=== PATIENT | female | born 1990 | race Caucasian/White ===

== ENCOUNTER 2018-03-03 02:45 | Emergency (ER) | payer BC, SELFPAY ==
[2018-03-03 02:48] VITALS: BP 179/120; PULSE 84; RESP 19; TEMP 36.4; O2SAT 100; BMI 31.6
--- NOTE | 2018-03-03 03:03 | ED.RN ---
NO OLD EKGS
--- NOTE | 2018-03-03 03:11 | EKG12_ITS ---
Test Reason : CP Blood Pressure : / mmHG Vent. Rate : 083 BPM Atrial Rate : 083 BPM P-R Int : 154 ms QRS Dur : 090 ms QT Int : 384 ms P-R-T Axes : 038 031 042 degrees QTc Int : 451 ms Normal sinus rhythm Normal ECG Confirmed by MORENA MCDANIEL, CARLO ([id number]), editor department CHRISTIANA RANDOLPH ([id number]) on 03/05/2018 9:01:58 AM Referred By: MADIE Confirmed By:CARLO BERG MD
--- NOTE | 2018-03-03 03:11 | CT_ITS ---
STUDY: CTA CHEST REASON FOR EXAM: Female, 27 years old. Chest pain RADIATION DOSAGE (If Supplied By Facility): CTDIvol = ( 9.78 ) mGy, DLP = ( 527.41 ) mGycm TECHNIQUE: The examination was performed with the intravenous administration of 100 ml of Isovue 370 contrast material. Post-processing of the angiographic images was performed, with multiplanar reformation and 3D reconstruction. There is image blurring as a result of cardiac motion. Diagnostic accuracy is somewhat reduced. However, there is substantial diagnostic information remaining available on this study. Individualized dose optimization techniques were used for this CT. COMPARISON: None. FINDINGS: Normal enhancement of the main pulmonary artery and right and left pulmonary arteries. Normal enhancement of the bilateral peripheral pulmonary arteries. There is no demonstrated pulmonary embolism. Normal thoracic aorta and visualized great vessels. There is no demonstrated aortic dissection. Normal heart and pericardium. Normal mediastinum. Normal hilar regions. Normal visualized trachea and bronchi. The lungs are under expanded. Normal pulmonary parenchyma. Normal pleura. Normal chest wall structures. Normal osseous structures. Obesity. CT/CTA Chest W/WO Contrast IMPRESSION: Normal CTA chest examination, without a demonstrated pulmonary embolism or arterial dissection on submitted images. Electronically Signed: Monalisa Adamson MD at 4:18 EST , Service support ,
[2018-03-03 03:25] LABS: Absolute Lymphocyte Count 2.38 X10^3/ul (0.83-4.51); Absolute Neutrophil Count 4.7 X10^3/uL (2.0-7.7); Basophil# 0.01 X10^3/uL; Basophil% 0.1 % (0-1); Eosinophil# 0.15 X10^3/uL; Eosinophils% 1.9 % (0-5); Hematocrit 38.7 % (37-47); Hemoglobin 12.5 g/dl (12.0-15.0); Lymphocyte # 2.38 X10^3/ul (4.0); Lymphocyte % 30.6 % (19-41); Mean Corp Hgb Conc 32.3 g/gl (32-36); Mean Corpuscular Hgb 28.2 pg (27.0-32.0); Mean Corpuscular Volume 87.2 fL (81-99); Mean Platelet Vol. 11.7 fl (6.2-12.0); Monocyte# 0.54 X10^3/uL; Monocyte% 6.9 % (0-10); Neutrophil # 4.68 X10^3/uL (2.7-7.7); Neutrophil % 60.4 % (47-70); Platelet Count 156 K/mm3 (150-450); RBC Distribution Width SD 40.6 fl (35.1-43.9); Red Blood Count 4.44 M/mm3 (4.2-5.4); White Blood Count 7.8 K/mm3 (4.4-11.0)
[2018-03-03 03:31] LABS: POSITIVE COUNT NO; POSITIVE DIFFERENTIAL NO; POSITIVE MORPHOLOGY NO
[2018-03-03 03:42] LABS: Anion Gap 11 (5-15); BUN 12 mg/dL (7-18); BUN/Creat Ratio 14.2 RATIO (10-20); Calcium,Total 8.5 mg/dL (8.5-10.1); Chloride 103 mmol/L (98-107); Creatinine, Serum 0.85 mg/dL (0.55-1.02); EST Glomerular Filtration Rate 84 mL/min (>60); Est Glom Filt Rate - Afr Amer 102 mL/min (>60); Estimated Creatinine Clearance 91.42 ml/min; Glucose 103 mg/dL (74-106); Potassium 3.6 mmol/L (3.5-5.1); Sodium Level 139 mmol/L (136-145)
--- NOTE | 2018-03-03 04:19 | ED.DCSUM_ITS ---
- ER Visit Summary Date of Service: 03/03/18 Chief Complaint: Chest pain History of Present Illness: The patient is a 27 F who presents with chest pain. She states she had woken up and just was not feeling well. She felt warm. She began to feel short of breath. She then developed a anterior substernal chest pain which she describes as pressure-like and stinging. She had palpitations and felt like her heart was racing. She was concerned she may be having a heart attack. She states that she chewed up Tylenol because she did not have aspirin. She went outside. Currently the pain is gone but she does feel slightly short of breath still. She denies recent illness cough. She is treated for high blood pressure and is a smoker. She denies diabetes or hyperlipidemia. Unknown family history as she was adopted. She denies pulmonary embolism risk factors such as recent travel surgery mobilization cancer or prior DVT or pulmonary embolism. Physical Examination: Initial blood pressure 179/120 vitals otherwise normal Moist mucous membranes Patient does appear very anxious Heart is regular rate and rhythm Lungs are clear with equal breath sounds no rales rhonchi wheezes Abdomen soft nontender nondistended Remedies nontender without edema 2+ symmetric radial pulses Test Results: EKG shows normal sinus rhythm at a rate of 83 with no acute ischemic changes. CBC normal. BMP normal. Troponin negative. PA of the chest is normal. Emergency Department Course and Treatment: On reevaluation patient is much more calm and blood pressure has normalized. Workup negative as above. No evidence of serious life-threatening pathology. I did discuss that there is likely a component of anxiety but this would be a diagnosis of exclusion. We discussed signs and symptoms to monitor for, conditions which should prompt return here to the emergency department. Given her complaint of palpitations and heart racing we also discussed further possible outpatient workup such as Holter monitoring. She was advised to follow-up with her primary care physician. Treatment Plan: [] Disposition: Discharge Impression: Chest pain This note was generated with [employer] dictation software. It may contain incorrect words, spelling, and punctuation that were not noted in review of the chart prior to signing ED Disposition - Plan for ED Patient: Chief Complaint: Chest Pain Referrals: Michele Brown III, MD [Primary Care Provider] -
[2018-03-03 04:27] VITALS: BP 132/85; PULSE 72; O2SAT 100
[2018-03-03 04:32] VITALS: BP 132/75; PULSE 71; RESP 16; O2SAT 100
--- NOTE | 2018-03-03 04:32 | ED.DEP ---
ED Disposition - Plan for ED Patient: Chief Complaint: Chest Pain Instructions: ED Chest Pain NonCardiac Referrals: Michele Brown III, MD [Primary Care Provider] -
--- OUTSIDE RECORDS SUMMARY | 2018-05-07 09:06 | XMS RPT_ITS ---
:1990 Author Organization OHIP Care Team Providers Name Role Phone Michele Brown III Primary Care Unavailable Parish Sin Attending Unavailable JONATHAN DAMON Attending Unavailable RONEL SHEIKH (MANAGER PERSONNEL SELECTION) Attending Unavailable MICHELE BROWN III Referring Unavailable RONEL SHEIKH (MANAGER PERSONNEL SELECTION) Attending Unavailable RONEL SHEIKH (MANAGER PERSONNEL SELECTION) Referring Unavailable RONEL SHEIKH (MANAGER PERSONNEL SELECTION) Attending Unavailable RONEL SHEIKH (MANAGER PERSONNEL SELECTION) Referring Unavailable MICHELE BROWN Primary Care Unavailable Rogerio DAMON Attending Unavailable PROBLEMS PROBLEMS DATE TYPE CONDITION / CODE ATTENDING STATUS SOURCE 03/10/2018 Active Lobar pneumonia, DEANA, Active [facility] unspecified JONATHAN HOOKS [facility] organism / Repository J18.1(ICD-10) 03/10/2018 Admitting Unknown / Rogerio DAMON Active [facility] diagnosis UNK(Unknown) JONATHAN [facility] Repository PROCEDURES PROCEDURES No Procedure Records FoundRESULTS RESULTS ED PROV NOTE Observed: 03/10/2018 Status: COMPLETED Source: [place] 2:44 PM [facility] OTHER CAMPUS REPOSITORY HNO ID: [id number] Author: Jonathan Damon MD Service: Emergency Medicine Author Type: Physician Type: ED Provider Notes Filed: 03/10/2018 5:28 PM Note Text: 27-year-old female presenting for cough and shortness of breath. The patient states cough has been ongoing for several days now. She dates the cough is productive with white sputum. She has had subjective fever and chills. She states she is mostly short of breath with exertion. She states she has a sharp chest pain with coughing only. The pain is not there with deep breaths. She denies hemoptysis, leg pain. She denies any nausea or vomiting. She has a poor appetite. Her daughter is sick over [facility] with a viral infection and bacterial pneumonia. The patient denies current tobacco use. She states she used to smoke in the past. She denies lung problems. She states she has had some nasal congestion. Denies sore throat. Constitutional: . Nontoxic, well-appearing without any respiratory distress. No tachypnea. No accessory muscle use. Alert and oriented ?3. HEENT: Mucous membranes moist. Throat without tonsillar hypertrophy or exudates or erythema. Neck: Supple. Normal range of motion. Cardiovascular: Heart is regular rate and rhythm without murmurs, rubs or gallops. Pulmonary: Lungs rales the right lung base.. Gastrointestinal: Abdomen soft, nontender, nondistended with normal active bowel sounds. No rebound, guarding or peritoneal signs. Genitourinary: No CVA tenderness. Muscle skeletal: Moves all extremities equally and normally. No calf tenderness or lower extremity edema. 27-year-old female presenting for cough and shortness of breath. Her daughter is admitted at [facility] for a viral infection and pneumonia. The patient had an IV established blood work obtained she was given IV fluids. CBC leukocytosis 10.5. Chest x-ray concerning for pneumonia. The patient again nontoxic well-appearing tolerating oral intake. At this time, will place on antibiotics. She feels well for home-going. Discussed at length signs and symptoms to return and the importance of taking her antibiotics. Patient was accompanied by her mom. Agreeable to the plan. Discharged home in stable condition. Jonathan Damon MD 03/10/18 1728 ED NOTE Observed: 03/10/2018 Status: COMPLETED Source: [place] 2:40 PM CLINIC OTHER CAMPUS REPOSITORY HNO ID: [id number] Author: Mony Sanon) ALTON Winn Service: Emergency Medicine Author Type: Registered Nurse Type: ED Notes Filed: 03/10/2018 2:40 PM Note Text: Patient discharged to home, accompanied by mother. Discharge instructions given to patient, discharge teaching performed, Patient verbalized understanding of discharge instructions and follow-up care, Patient AANDOx4 MAEx4. Patient ambulates without difficulty. Belongings remain with patient, Valuables remain with patient. CHEST 2 VIEWS Observed: 03/10/2018 Status: F Source: [facility] 1:16 PM HEALTH SYSTEM REPOSITORY Performed at [facility] APPROVED BY: Shakeel Laureano MD EXAMINATION: CHEST RADIOGRAPH (2 VIEW FRONTAL & LATERAL) CLINICAL HISTORY: Cough. Acute respiratory illness. MQ: XC2_5 Comparison: AP chest 08/11/2007. RESULT: Lines, tubes, and devices: None. Lungs and pleura: Subtle scattered airspace opacity noted in the right lower lobe suspicious for mild pneumonia. Lungs are otherwise clear. No pleural effusion or pneumothorax. Cardiomediastinal silhouette: Normal cardiomediastinal silhouette. Other: No evidence of acute osseous abnormality. IMPRESSION: Findings worrisome for mild right lower lobe pneumonia. ED NOTE Observed: 03/10/2018 Status: COMPLETED Source: [place] 12:55 PM CLINIC OTHER CAMPUS REPOSITORY HNO ID: [id number] Author: Emely (Rn) ALTON Madrigal Service: Emergency Medicine Author Type: Registered Nurse Type: ED Notes Filed: 03/10/2018 12:55 PM Note Text: ED xray aware pt ready for testing HEMOGRAM/DIFF Collected: 03/10/2018 Status: F Source: [facility] 12:53 PM HEALTH SYSTEM REPOSITORY TYPE CODE TESTS RESULT OUT OF REFERENCE UNITS RANGE LAB WBC(LOINC) 3.98-10.04 thou/cmm WBC High 10.50 LAB RBC(LOINC) 3.93-5.22 mil/cmm RBC 4.85 LAB HGB(LOINC) 11.2-15.7 g/dL Hgb 13.5 LAB HCT(LOINC) 34.1-44.9 % Hct 41.5 LAB MCV(LOINC) 79.4-94.8 fl MCV 85.6 LAB MCH(LOINC) 25.6-32.2 pg MCH 27.8 LAB MCHC(LOINC 31.6-34.8 % ) MCHC 32.5 LAB RDW(LOINC) 11.7-14.4 % RDW 13.2 LAB RDWSD(LOIN 36.4-46.3 fl C) RDW SD 41.1 LAB PLT(LOINC) 182-369 thou/cmm Low Platelet 179 LAB MPV(LOINC) 9.4-12.3 fl MPV 12.1 LAB SEG(LOINC) % Seg Neutrophil 74.5 LAB IGRE(LOINC % ) Immature Grans 0.30 LAB LYMPH(LOIN % C) Lymphocyte 15.6 LAB MNO(LOINC) % Monocyte 7.7 LAB EOSIN(LOIN % C) Eosinophil 1.6 LAB BASO(LOINC % ) Basophil 0.3 LAB SEGN(LOINC 1.56-6.13 thou/cmm ) Abs. High Neut (ANC) 7.82 LAB IGAB(LOINC 0.00-0.05 thou/cmm ) Abs Immature Grans 0.03 LAB LYMN(LOINC 1.18-3.74 thou/cmm ) Abs. Lymph 1.64 LAB MONON(LOIN 0.27-0.70 thou/cmm C) Abs. High [place] 0.81 LAB EOSN(LOINC 0.00-0.31 thou/cmm ) Abs. Eosin 0.17 LAB BASON(LOIN 0.01-0.08 thou/cmm C) Abs. Baso 0.03 Performed By: #### CBCD1 #### [place] [address] COMPREHENSIVE PANEL Collected: 03/10/2018 Status: F Source: [facility] 12:53 PM HEALTH SYSTEM REPOSITORY TYPE CODE TESTS RESULT OUT OF REFERENCE UNITS RANGE LAB NA(LOINC) 136-145 mEq/L Low Sodium Blood 133 LAB K(LOINC) 3.5-5.1 mEq/L Low Potassium Blood 3.3 LAB CL(LOINC) 98-107 mEq/L Chloride Blood 100 LAB CO2(LOINC) 21-32 mEq/L CO2 Blood 28 LAB GLU(LOINC) 70-99 mg/dL Glucose Blood 94 LAB BUN(LOINC) 7-18 mg/dL BUN Blood 11 LAB CREA(LOINC 0.51-0.95 mg/dL ) Creatinine Blood 0.88 LAB CA(LOINC) 8.5-10.1 mg/dL Calcium Blood 8.6 LAB ALB(LOINC) 3.4-5.0 g/dL Albumin Blood 3.7 LAB TP(LOINC) 6.4-8.2 g/dL Total Protein 8.1 LAB AST(LOINC) 9-37 U/L AST-SGOT Blood 23 LAB ALT(LOINC) 12-78 U/L ALT-SGPT Blood 37 LAB ALKP(LOINC 46-116 U/L ) Alk Phosphatase 52 LAB BILIT(LOIN 0.2-1.0 mg/dL C) Total Bilirubin 0.4 LAB ANGAP(LOIN 8-16 C) Anion Gap 8 Performed By: #### P14 #### [facility] [address], [place] [address] MDRD GFR Collected: 03/10/2018 Status: F Source: [facility] 12:53 PM HEALTH SYSTEM REPOSITORY TYPE CODE TESTS RESULT OUT OF RANGE REFERENCE UNITS LAB GFRFN(LOINC >60mL/min/1.73m ) 2 eGFR >60 Result Comment: If the patient is , multiply the result by 1.210. Performed By: #### GFR #### [facility] [address] [place], [place] [address] ED PROV NOTE Observed: 03/10/2018 Status: COMPLETED Source: [place] 12:02 PM CLINIC OTHER CAMPUS REPOSITORY HNO ID: [id number] Author: Tamiko Bazzi Service: Emergency Medicine Author Type: Resident Type: ED Provider Notes Filed: 03/10/2018 5:55 PM Note Text: Attestation signed by Jonathan Damon MD at 03/10/2018 6:54 PM Attending Note I evaluated the patient and personally participated in the haider components. I agree with the resident's findings and plan as documented and have discussed the case and management of the patient's care with the resident. Heart rate improved with interventions. Signature: Jonathan Damon MD Date: 03/10/2018 Time: 6:54 PM ED Provider Note Patient Name: Sharon Lozada SERVICE DATE: 03/10/18 History Patient presents with: Cough: pt states that her daughter is at [facility] for [facility], pt c/o cough since monday with white sputum HPI 27-year-old female no significant past medical history who presents for evaluation of productive cough. The patient refers that she has been experiencing productive cough with white sputum, no hemoptysis, for the past 4 days. She also endorses progressively worsening dyspnea on exertion and mild shortness of breath at rest. She endorses subjective fevers and chills refers that she has not been taking her temperature at home. Patient also endorses pleuritic chest pain associated with cough only. She denies any abdominal pain, nausea, emesis. She denies arthralgias or myalgias. The patient refers that she her 6-year-old daughter is currently being treated at [facility] for bilateral pneumonia. PAST MEDICAL HISTORY Diagnosis Date - Depression 01/11/2012 - PMH - PAST MEDICAL HISTORY OF 11/01/95 normal color vision - PMH - PAST MEDICAL HISTORY OF left ear high frequency hearing loss - Suicide attempt (HCC) 01/11/2012 - Tobacco abuse 01/11/2012 PAST SURGICAL HISTORY Procedure Laterality Date - DELIVERY ONLY 10/07/14 , low transverse FAMILY HISTORY Problem Relation Age of Onset - Adopted: Yes - other (adopted [Other]) Unknown Social History Social History Main Topics - Smoking status: Current Some Day Smoker Packs/day: 0.25 Types: Cigarettes - Smokeless tobacco: Never Used Comment: smokes socially on weekends - Alcohol use No - Drug use: No - Sexual activity: Yes Partners: Male control/ protection: None ALLERGIES No Known Allergies Review of Systems Constitutional: Positive for chills and fever. Negative for appetite change. Subjective fevers HENT: Negative for congestion, rhinorrhea and sore throat. Respiratory: Positive for cough and shortness of breath. Negative for chest tightness. Cardiovascular: Positive for chest pain. Negative for palpitations and leg swelling. Pleuritic chest pain Gastrointestinal: Negative for abdominal distention, abdominal pain, nausea and vomiting. Genitourinary: Negative for dysuria, frequency and urgency. Musculoskeletal: Negative for arthralgias, myalgias, neck pain and neck stiffness. Skin: Negative for color change, pallor and rash. Neurological: Negative for dizziness, syncope and light-headedness. Hematological: Negative for adenopathy. Does not bruise/bleed easily. Physical Exam BP 132/75 Pulse 115 Temp (Src) 99.7 (Oral) Resp 16 Ht 5' 5 (1.65m) Wt 190 lb (86.2kg) SpO2 96% BMI 31.62 kg/(m2). Physical Exam Constitutional: She is oriented to person, place, and time. She appears well-developed and well-nourished. No distress. HENT: Head: Normocephalic and atraumatic. Eyes: Pupils are equal, round, and reactive to light. EOM are normal. No scleral icterus. Neck: Normal range of motion. Neck supple. No JVD present. No thyromegaly present. Cardiovascular: Regular rhythm. Exam reveals no friction rub. No murmur heard. Pulmonary/Chest: Effort normal. No respiratory distress. She has wheezes. She has no rales. Abdominal: Soft. Bowel sounds are normal. She exhibits no distension and no mass. There is no tenderness. There is no guarding. Musculoskeletal: Normal range of motion. She exhibits no edema or tenderness. Neurological: She is alert and oriented to person, place, and time. No cranial nerve deficit. Skin: Skin is warm and dry. Capillary refill takes less than 2 seconds. She is not diaphoretic. No erythema. Diagnostic Testing ED Labs Ordered and Reviewed - No data to display Procedures ED Course / Clinical Impression Clinical Impressions as of Mar 10 1730 Community acquired pneumonia of right lower lobe of lung (HCC) 27-year-old female with past medical history significant for hypertension who presents for evaluation of productive cough and dyspnea on exertion. At presentation patients BP 132/75, HR 115, RR 16, 96% saturation on room air. The patient's CMP demonstrated mild hyponatremia and hypokalemia. Her CBC was significant for mild neutrophilic leukocytosis with white blood cell count of 10.5 and mild thrombocytopenia with a platelet count of 179. Her chest x-ray demonstrated findings concerning for a right lower lobe pneumonia. The patient was in stable condition and continued to saturate well on room air without any respiratory distress. She was discharged in stable condition with scripts for azithromycin and Augmentin to cover atypical pneumonia and advised to follow up with her primary care physician. MDM / Disposition / Plan Disposition The patient was discharged. Counseled patient regarding lab results, radiology results and suspected diagnosis. As well as the need for follow-up. Discharged home with verbal and written instructions. They were instructed to return as needed for persistent or worsening symptoms or any new concerns. Condition at disposition is stable. SIGNATURE: MD Tamiko Feliz (Res) Jluis Resident 03/10/18 9835 Jonathan Damon MD 03/10/18 0004 ED NOTE Observed: 03/10/2018 Status: COMPLETED Source: [place] 11:54 AM [facility] OTHER CAMPUS REPOSITORY HNO ID: [id number] Author: Toy GrahamRn) ALTON Heard Service: (none) Author Type: Registered Nurse Type: ED Notes Filed: 03/10/2018 11:54 AM Note Text: Bed: 40-ED Expected date: Expected time: Means of arrival: Comments: TRIAGE 12 LEAD ELECTROCARDIOGRAM Observed: 03/05/2018 Status: F Source: [place] 9:02 AM [facility] REPOSITORY [facility] Cardiovascular Services [address] [place] [address] 12 Lead EKG 03/03/18 0249 MR#: [id number] Acct: [id number] Name: SHARON LOZADA Rep #: [id number] : 1990 27 From: Leonel Arriola MD Attending Dr: Status: DEP ER Ordering Dr: Parish Sin MD Date: 03/03/18 Location: ED Sex: F C Admitted: Test Reason : CP Blood Pressure : / mmHG Vent. Rate : 083 BPM Atrial Rate : 083 BPM P-R Int : 154 ms QRS Dur : 090 ms QT Int : 384 ms P-R-T Axes : 038 031 042 degrees QTc Int : 451 ms Normal sinus rhythm Normal ECG Confirmed by LEONEL ARRIOLA MD ([id number]), visual effects editor CHRISTIANA RANDOLPH ([id number]) on 03/05/2018 9:01:58 AM Referred By: MADIE Confirmed By:LEONEL ARRIOLA MD 03/05/18901 Date Leonel Arriola MD CC: Michele Brown III, MD; Parish Sin MD Signed DISCHARGE INSTRUCTION Observed: 03/03/2018 Status: F Source: [place] 4:33 AM [facility] HOSPITAL REPOSITORY [facility] Medical Records Department [address] [place] [address] Discharge Instruction 03/03/18431 MR#: [id number] Acct: [id number] Name: SHARON LOZADA Rep #: [id number] : 1990 27 From: Parish Sin MD PCP: Michele Brown III, MD Status: REG ER ED Disposition - Plan for ED Patient: Chief Complaint: Chest Pain Instructions: ED Chest Pain NonCardiac Referrals: Michele Brown III, MD [Primary Care Provider] - What to do if you have Problems For any increased pain, shortness of breath, bleeding, nausea or vomiting, chest pain, or any unexpected problems, contact your Primary Care Provider. Call [facility] ([phone]) or report to the closest Emergency Room. Call 911 if necessary. 03/03/18432 <Electronically signed by Parish Sin MD> Date Parish Sin MD Cosigner Signature (If Indicated): Date CC: Michele Brown III, MD EMERGENCY DEPARTMENT Observed: 03/03/2018 Status: F Source: [place] SUMMARY 4:32 AM [facility] REPOSITORY [facility] Medical Records Department [address] [place] [address] Emergency Department Summary 03/03/18416 MR#: [id number] Acct: [id number] Name: SHARON LOZADA Rep #: [id number] : 1990 27 From: Parish Sin MD PCP: Michele Brown III, MD Status: REG ER - ER Visit Summary Date of Service: 03/03/18 Chief Complaint: Chest pain History of Present Illness: The patient is a 27 F who presents with chest pain. She states she had woken up and just was not feeling well. She felt warm. She began to feel short of breath. She then developed a anterior substernal chest pain which she describes as pressure-like and stinging. She had palpitations and felt like her heart was racing. She was concerned she may be having a heart attack. She states that she chewed up Tylenol because she did not have aspirin. She went outside. Currently the pain is gone but she does feel slightly short of breath still. She denies recent illness cough. She is treated for high blood pressure and is a smoker. She denies diabetes or hyperlipidemia. Unknown family history as she was adopted. She denies pulmonary embolism risk factors such as recent travel surgery mobilization cancer or prior DVT or pulmonary embolism. Physical Examination: Initial blood pressure 179/120 vitals otherwise normal Moist mucous membranes Patient does appear very anxious Heart is regular rate and rhythm Lungs are clear with equal breath sounds no rales rhonchi wheezes Abdomen soft nontender nondistended Remedies nontender without edema 2+ symmetric radial pulses Test Results: EKG shows normal sinus rhythm at a rate of 83 with no acute ischemic changes. CBC normal. BMP normal. Troponin negative. PA of the chest is normal. Emergency Department Course and Treatment: On reevaluation patient is much more calm and blood pressure has normalized. Workup negative as above. No evidence of serious life-threatening pathology. I did discuss that there is likely a component of anxiety but this would be a diagnosis of exclusion. We discussed signs and symptoms to monitor for, conditions which should prompt return here to the emergency department. Given her complaint of palpitations and heart racing we also discussed further possible outpatient workup such as Holter monitoring. She was advised to follow-up with her primary care physician. Treatment Plan: [] Disposition: Discharge Impression: Chest pain This note was generated with [employer] dictation software. It may contain incorrect words, spelling, and punctuation that were not noted in review of the chart prior to signing ED Disposition - Plan for ED Patient: Chief Complaint: Chest Pain Referrals: Michele Brown III, MD [Primary Care Provider] - What to do if you have Problems For any increased pain, shortness of breath, bleeding, nausea or vomiting, chest pain, or any unexpected problems, contact your Primary Care Provider. Call [facility] ([phone]) or report to the closest Emergency Room. Call 911 if necessary. 03/03/18 0432 <Electronically signed by Parish Sin MD> Date Parish Sin MD Cosigner Signature (If Indicated): Date CC: Michele Brown III, MD CBC W/DIFF, AUTOMATED Collected: 03/03/2018 Status: F Source: [place] 3:20 AM [facility] REPOSITORY TYPE CODE TESTS RESULT OUT OF RANGE REFERENCE UNITS LAB L100.1000 4.4-11.0 K/mm3 Normal WBC 7.8 LAB L100.1200 4.2-5.4 M/mm3 Normal RBC 4.44 LAB L100.1300 12.0-15.0 g/dl Normal HGB 12.5 LAB L100.1400 37-47 % Normal HCT 38.7 LAB L100.1500 81-99 fL Normal MCV 87.2 LAB L100.1600 27.0-32.0 pg Normal MCH 28.2 LAB L100.1700 32-36 g/gl Normal MCHC 32.3 LAB L100.1810 11.6-14.6 % Normal RDW CV 13.0 LAB L100.1820 35.1-43.9 fl Normal RDW SD 40.6 LAB L100.1900 150-450 K/mm3 Normal PLT 156 LAB L100.2000 6.2-12.0 fl Normal MPV 11.7 LAB L100.2100 47-70 % Normal NEUT% 60.4 LAB L100.2200 19-41 % Normal LY% 30.6 LAB L100.2300 0-10 % Normal MONO% 6.9 LAB L100.2400 0-5 % Normal EO% 1.9 LAB L100.2500 0-1 % Normal BASO% 0.1 LAB L100.2550 0.0-0.9 % Normal IM GRAN % 0.100 Result Comment: IG% - Immature Granulocytes (promyelocytes, myelocytes and metamyelocytes) > 1% indicates that a LEFT SHIFT is Present. LAB L100.2620 2.0-7.7 X10 3/uL Normal Absolute Neut 4.7 LAB L100.2720 0.83-4.51 X10 3/ul Normal Absolute Lymph 2.38 Performed By: #### L100.0100 #### [facility] [address] [place], [address] BASIC METABOLIC Collected: 03/03/2018 Status: F Source: [place] PROFILE (BMP) 3:20 AM [facility] REPOSITORY TYPE CODE TESTS RESULT OUT OF RANGE REFERENCE UNITS LAB L501.0100 74-106 mg/dL Normal GLU 103 Result Comment: Fasting Glucose result from 100 to 125 mg/dL suggests IMPAIRED HOMEOSTASIS per A.D.A. criteria. Please note revised GLUCOSE reference range effective 2017. LAB L501.1000 7-18 mg/dL Normal BUN 12 LAB L501.1100 0.55-1.02 mg/dL Normal CREAT,SERUM 0.85 Result Comment: The validity of the calculated GFR AND GFRAA in patients over 70 years has not been determined. Clinical correlation is essential. LAB L501.1110 >60 mL/min Normal EST GFR 84 Result Comment: Non- GFR Calc LAB L501.1115 >60 mL/min Normal EST GFR - AA 102 Result Comment: GFR Calc LAB L501.1255 ml/min Normal Estimated CRCL 91.42 LAB L501.1300 10-20 RATIO Normal BUN/CRE 14.2 LAB L501.2200 8.5-10 mg/dL Normal .1 CA 8.5 LAB L501.5300 136-14 mmol/L Normal 5 NA 139 LAB L501.5600 3.5-5. mmol/L Normal 1 K 3.6 LAB L501.5900 98-107 mmol/L Normal CL 103 LAB L501.6100 21.0-3 mmol/L Normal 2.0 CO2 25.0 LAB L501.6200 5-15 Normal GAP 11 Performed By: #### L500.2500, L501.4010 #### [facility] [address] [place], [address] TROPONIN-I Collected: 03/03/2018 Status: F Source: [place] 3:20 AM [facility] REPOSITORY TYPE CODE TESTS RESULT OUT OF RANGE REFERENCE UNITS LAB L501.4010 <0.045 ng/mL Normal < 0.015 TROPONIN-I Result Comment: TROPONIN-I EXPECTED VALUES <0.045 Negative 0.045 - 0.590 Consistent with Cardiac Damage > OR = 0.600 Critical Value Not every elevated troponin is indicative of IL. These values should be used with clinical judgement in examining the patient's clinical picture for diagnosis. To establish a diagnosis of IL versus myocardial injury, there must be a demonstrated rise and/or fall in the troponin values, in addition to ischemic symptoms, EKG changes, new regional wall motion abnormality, and/or angiographical evidence. PLEASE NOTE: REFERENCE RANGES EDITED 17 Performed By: #### L500.2500, L501.4010 #### [facility] [address] [place], [address] CTA CHEST W/WO Observed: 03/03/2018 Status: F Source: [place] CONTRAST 3:12 AM [facility] REPOSITORY [facility] Imaging Services [address] [facility] [place] [address] CTA Chest W/WO Contrast MR#: [id number] Acct: [id number] Name: BLAKE LOZADANEGIN Haile Rep #: [id number] : 1990 F 27 From: Monalisa Adamson MD PCP: Michele Brown III, MD Status: REG ER Study: CTA Chest W/WO Contrast Date of Exam: 03/03/18 Exam# [id number] Ordering Dr: Parish Sin MD STUDY: CTA CHEST REASON FOR EXAM: Female, 27 years old. Chest pain RADIATION DOSAGE (If Supplied By Facility): CTDIvol = ( 9.78 ) mGy, DLP = ( 527.41 ) mGycm TECHNIQUE: The examination was performed with the intravenous administration of 100 ml of Isovue 370 contrast material. Post-processing of the angiographic images was performed, with multiplanar reformation and 3D reconstruction. There is image blurring as a result of cardiac motion. Diagnostic accuracy is somewhat reduced. However, there is substantial diagnostic information remaining available on this study. Individualized dose optimization techniques were used for this CT. COMPARISON: None. FINDINGS: Normal enhancement of the main pulmonary artery and right and left pulmonary arteries. Normal enhancement of the bilateral peripheral pulmonary arteries. There is no demonstrated pulmonary embolism. Normal thoracic aorta and visualized great vessels. There is no demonstrated aortic dissection. Normal heart and pericardium. Normal mediastinum. Normal hilar regions. Normal visualized trachea and bronchi. The lungs are under expanded. Normal pulmonary parenchyma. Normal pleura. Normal chest wall structures. Normal osseous structures. Obesity. CT/CTA Chest W/WO Contrast IMPRESSION: Normal CTA chest examination, without a demonstrated pulmonary embolism or arterial dissection on submitted images. Electronically Signed: Monalisa Adamson MD at 4:18 EST , Service support , CC: Michele Brown III, MD; Parish Sin MD District Operations Manager: Signed PROGRESS Observed: 11/23/2017 Status: COMPLETED Source: [place] 4:10 PM [facility] [place] REPOSITORY HNO ID: [id number] Author: Ronel Richard (Aggie Sheikh Service: (none) Author Type: Nurse Practitioner Type: Progress Notes Filed: 11/23/2017 5:11 PM Note Text: Chief Complaint Patient presents with: Recheck: blood pressure HPI Sharon Lozada is a 27 year old female who presents here today for recheck BP and mood. Seen one month ago. Labs previously ordered, not done. HTN: Ms. Lozada indicates that she is feeling well and denies any symptoms referable to elevated blood pressure. Specifically denies headache, chest pain, palpitations, dyspnea and peripheral edema. Patient denies any side effects of her medication(s) and is compliant with their regimen. She does not check BP's generally. Sharon denies regular aerobic exercise. She watches her diet for sodium, low fat and low cholesterol generally not very much. Last 3 Encounter BP Readings: Date: BP: 11/23/2017 122/86 10/24/2017 138/88 10/06/2017 150/90 Mood: doing well on current dose of Lexapro. Feels anxiety is well controlled. The ROS is otherwise negative. Past medical history, appointments, medications, allergies reviewed. Patient Allergies ALLERGIES No Known Allergies Current Medications Current Outpatient Prescriptions on File Prior to Visit: escitalopram oxalate (LEXAPRO) 10 mg tablet Take 1 tablet by mouth once daily. lisinopril (ZESTRIL, PRINIVIL) 10 mg tablet Take 1 tablet by mouth once daily. Hydrochlorothiazide 12.5 mg capsule Take 1 capsule by mouth once daily. No current facility-administered medications on file prior to visit. Previous Medical History PAST MEDICAL HISTORY Diagnosis Date - Depression 01/11/2012 - PM - PAST MEDICAL HISTORY OF 11/01/95 normal color vision - [facility] - PAST MEDICAL HISTORY OF left ear high frequency hearing loss - Suicide attempt (HCC) 01/11/2012 - Tobacco abuse 01/11/2012 Previous Surgical History PAST SURGICAL HISTORY Procedure Laterality Date - DELIVERY ONLY 10/07/14 , low transverse Family History FAMILY HISTORY Problem Relation Age of Onset - Adopted: Yes - other (adopted [Other]) Unknown Social History Social History Marital status: Single Spouse name: Years of education: Number of children: 1 Occupational History Occupation Employer Comment [employer] Social History Main Topics Smoking status: Current Some Day Smoker Packs/day: 0.25 Years: 0.00 Types: Cigarettes Smokeless tobacco: Never Used Comment: smokes socially on weekends Alcohol use: No Drug use: No Sexual activity: Yes Partners with: Male control/protection: None EXAM: BP 122/86 (BP Site: Left Arm, BP Position: Sitting, BP Cuff Size: Large Adult) Pulse 76 Temp 37 ?C (98.6 ?F) (Tympanic) Resp 18 Wt 87.5 kg (193 lb) LMP 11/13/2017 (Exact Date) BMI 32.12 kg/m? General Appearance: Well appearing, alert, in no acute distress, well-hydrated, well nourished. and Overweight. Skin: Skin color, texture, turgor normal, no suspicious rashes or lesions. Head: Normocephalic, no masses, lesions, tenderness or abnormalities. Eyes: Anicteric sclera. Pupils are equally round and reactive to light. Extraocular movements are intact. Ears: External ears normal, canals clear. Oropharynx: Lips, mucosa, and tongue normal, teeth and gums normal, oropharynx normal. Neck: Supple, no adenopathy; thyroid symmetric, normal size, no bruits. Lungs: Lungs clear to auscultation. No wheezing, rhonchi, rales. Heart: RRR without murmur, gallop, or rubs. No ectopy. ASSESSMENT/PLAN: 1. Essential hypertension - ICD9: 401.9, ICD10: I10 (primary diagnosis) - good control - Continue current medication(s) - Encouraged dietary sodium restriction/DASH diet - Recommended regular aerobic exercise. - Recommend home blood pressure monitoring, to bring results in on next visit -Recheck in 6 months - Goal of BP <130/80 - LISINOPRIL 10 MG TABLET - HYDROCHLOROTHIAZIDE 12.5 MG CAPSULE 2. Anxiety and depression - ICD9: 300.00, 311, ICD10: F41.9, F32.9 -Improved, -Continue current medication. Ronel Sheikh, MSN CLOTH SHEARING SUPERVISOR.SOLE ASSESSOR CNOV Observed: 11/23/2017 Status: COMPLETED Source: [place] 3:40 PM [facility] REPOSITORY Office Visit (FAMPWS) SHARON LOZADA ([id number]) 1990 F Date Time Provider Department 11/23/17 3:40 PM RONEL SHEIKH (MANAGER PERSONNEL SELECTION) FAMPWS During your visit today, we recorded the following information about you: Temperature Pulse Respiration Blood pressure 98.6 degrees 76/minute 18/minute 122/86 Weight Last Period 87.5 kg 11/13/17 Ronel Sheikh MSN CLOTH SHEARING SUPERVISOR.SOLE ASSESSOR 11/23/2017 5:11 PM Signed Chief Complaint Patient presents with: Recheck: blood pressure HPI Sharon Lozada is a 27 year old female who presents here today for recheck BP and mood. Seen one month ago. Labs previously ordered, not done. HTN: Ms. Lozada indicates that she is feeling well and denies any symptoms referable to elevated blood pressure. Specifically denies headache, chest pain, palpitations, dyspnea and peripheral edema. Patient denies any side effects of her medication(s) and is compliant with their regimen. She does not check BP's generally. Sharon denies regular aerobic exercise. She watches her diet for sodium, low fat and low cholesterol generally not very much. Last 3 Encounter BP Readings: Date: BP: 11/23/2017 122/86 10/24/2017 138/88 10/06/2017 150/90 Mood: doing well on current dose of Lexapro. Feels anxiety is well controlled. The ROS is otherwise negative. Past medical history, appointments, medications, allergies reviewed. Patient Allergies ALLERGIES No Known Allergies Current Medications Current Outpatient Prescriptions on File Prior to Visit: escitalopram oxalate (LEXAPRO) 10 mg tablet Take 1 tablet by mouth once daily. lisinopril (ZESTRIL, PRINIVIL) 10 mg tablet Take 1 tablet by mouth once daily. Hydrochlorothiazide 12.5 mg capsule Take 1 capsule by mouth once daily. No current facility-administered medications on file prior to visit. Previous Medical History PAST MEDICAL HISTORY Diagnosis Date - Depression 01/11/2012 - PMH - PAST MEDICAL HISTORY OF 11/01/95 normal color vision - PM - PAST MEDICAL HISTORY OF left ear high frequency hearing loss - Suicide attempt (HCC) 01/11/2012 - Tobacco abuse 01/11/2012 Previous Surgical History PAST SURGICAL HISTORY Procedure Laterality Date - DELIVERY ONLY 10/07/14 , low transverse Family History FAMILY HISTORY Problem Relation Age of Onset - Adopted: Yes - other (adopted [Other]) Unknown Social History Social History Marital status: Single Spouse name: Years of education: Number of children: 1 Occupational History Occupation Employer Comment [employer] Social History Main Topics Smoking status: Current Some Day Smoker Packs/day: 0.25 Years: 0.00 Types: Cigarettes Smokeless tobacco: Never Used Comment: smokes socially on weekends Alcohol use: No Drug use: No Sexual activity: Yes Partners with: Male control/protection: None EXAM: BP 122/86 (BP Site: Left Arm, BP Position: Sitting, BP Cuff Size: Large Adult) Pulse 76 Temp 37 ?C (98.6 ?F) (Tympanic) Resp 18 Wt 87.5 kg (193 lb) LMP 11/13/2017 (Exact Date) BMI 32.12 kg/m? General Appearance: Well appearing, alert, in no acute distress, well-hydrated, well nourished. and Overweight. Skin: Skin color, texture, turgor normal, no suspicious rashes or lesions. Head: Normocephalic, no masses, lesions, tenderness or abnormalities. Eyes: Anicteric sclera. Pupils are equally round and reactive to light. Extraocular movements are intact. Ears: External ears normal, canals clear. Oropharynx: Lips, mucosa, and tongue normal, teeth and gums normal, oropharynx normal. Neck: Supple, no adenopathy; thyroid symmetric, normal size, no bruits. Lungs: Lungs clear to auscultation. No wheezing, rhonchi, rales. Heart: RRR without murmur, gallop, or rubs. No ectopy. ASSESSMENT/PLAN: 1. Essential hypertension - ICD9: 401.9, ICD10: I10 (primary diagnosis) - good control - Continue current medication(s) - Encouraged dietary sodium restriction/DASH diet - Recommended regular aerobic exercise. - Recommend home blood pressure monitoring, to bring results in on next visit -Recheck in 6 months - Goal of BP <130/80 - LISINOPRIL 10 MG TABLET - HYDROCHLOROTHIAZIDE 12.5 MG CAPSULE 2. Anxiety and depression - ICD9: 300.00, 311, ICD10: F41.9, F32.9 -Improved, -Continue current medication. Ronel Sheikh, MSN CLOTH SHEARING SUPERVISOR.SOLE ASSESSOR Referring Provider: RONEL SHEIKH (MANAGER PERSONNEL SELECTION) [[id number]] Allergies As of Date: 11/23/2017 (No Known Allergies) Date Reviewed: 11/23/2017 Reviewed by: Jefferson Duncan LPN - Fully Assessed Reason for Visit: Recheck [92] Cmt: blood pressure Primary Visit Diagnosis:Essential hypertension [I10] Other Visit Diagnosis:Anxiety and depression [F41.9, F32.9] Order(s):lisinopril (ZESTRIL, PRINIVIL) 10 mg tabletTake 1 tablet by mouth once daily.Disp: 90 tabletRfl: 3 Hydrochlorothiazide 12.5 mg capsuleTake 1 capsule by mouth once daily.Disp: 90 capsuleRfl: 3 Prescriptions as of 11/23/2017 Sig: LISINOPRIL 10 MG TABLET Take 1 tablet by mouth once d* HYDROCHLOROTHIAZIDE 12.5 MG C* Take 1 capsule by mouth once * ESCITALOPRAM 10 MG TABLET Take 1 tablet by mouth once d* Problem List As Of Date 11/23/2017 Noted Resolved Depression [F32.9] INVALID FOR*11/21/2014 Suicide attempt (HCC) [T14.91XA] INVALID FOR*11/29/2013 Tobacco abuse [Z72.0] INVALID FOR* More... Depression complicating in first trim*INVALID FOR*11/21/2014 More... Supervision of normal [Z34.90] INVALID FOR*10/17/2014 More... Anxiety and depression [F41.9, F32.9] INVALID FOR* Essential hypertension [I10] INVALID FOR* Prescriptions ordered this encounter Disp Refills Start End LISINOPRIL 10 MG TABLET 90 t* 3 11/23/2017 Route: ORAL Sig: Take 1 tablet by mouth once daily. HYDROCHLOROTHIAZIDE 12.5 MG CAPSULE 90 c* 3 11/23/2017 Route: ORAL Sig: Take 1 capsule by mouth once daily. Medications Discontinued During This Encounter lisinopril (ZESTRIL, PRINIVIL) 10 mg* 30 t* 1 10/02/2017 11/23/2017 Route: ORAL Sig: Take 1 tablet by mouth once daily. Disc: Reason for discontinue is not on file. Hydrochlorothiazide 12.5 mg capsule 90 c* 3 02/27/2017 11/23/2017 Route: ORAL Sig: Take 1 capsule by mouth once daily. Disc: Reason for discontinue is not on file. Disposition: Return in about 6 months (around 05/24/2018). Follow-up and Disposition History Recorded Encounter Status:Closed by RONEL SHEIKH SOLE ASSESSOR on 11/23/17 PROGRESS Observed: 10/24/2017 Status: COMPLETED Source: [place] 4:04 PM [facility] [place] REPOSITORY HNO ID: [id number] Author: Ronel Richard (Analytics Specialist) [place] Service: (none) Author Type: Nurse Practitioner Type: Progress Notes Filed: 10/24/2017 4:30 PM Note Text: Patient presents with: Recheck: blood pressure and medication HPI/CC: Sharon Lozada is an 27 year old female who presents for followup of depression treatment. And recheck BP Since last visit patient fatigue. Symptoms have occurred anxious about 1 to 2 times a day. Depressed feeling once a week. Support system: patient states that her boyfriend is her number one support system. Patient also relies on her family as her support system. Patient also uses her friends as a support system. Positive health behaviors: Patient is unable to think of any positive health behavior changes. Patient denies: chest pain, SOB, dizziness, change is bowel patterns. PHQ9 and SUSAN-7: Feeling nervous, anxious, or on edge 0 Not at all sure Not being able to stop or control worrying 0 Not at all sure Worrying too much about different things 1 Several days Trouble relaxing 1 Several days Being so restless that it's hard to sit still 0 Not at all sure Being easily annoyed or irritable 0 Not at all sure Feeling afraid as if something awful might happen 0 Not at all sure SUSAN-7 Anxiety Score 2 If you checked off any problems, how difficult have these problems made it for you to do your work, take care of things at home, or get along with other people? Somewhat difficult HTN: Last 3 Encounter BP Readings: On Lisinopril and HCTZ, denies side effects. Date: BP: 10/24/2017 138/88 10/06/2017 150/90 10/02/2017 140/90 ROS as above, otherwise non-contributory. Reviewed PMHx, PSHx, social Hx, medications and allergies. PHYSICAL EXAMINATION: BP 138/88 Pulse 76 Temp 36.9 ?C (98.5 ?F) (Tympanic) Resp 16 Wt 85.7 kg (189 lb) LMP 10/15/2017 (Exact Date) BMI 31.45 kg/m? Appearance: well dressed well groomed, cooperative and pleasant Behavior: good eye contact and relaxed Speech: fluent and coherent Mood: happy and modulated Affect: appropriate Perceptions: none Thought process: goal directed Thought Content: normal Intelligence level: normal Insight: fair Judgment: good Lungs: Lungs clear to auscultation. No wheezing, rhonchi, rales Heart: RRR without murmur, gallop, or rubs. No ectopy ASSESSMENT/PLAN: 1. Essential hypertension - ICD9: 401.9, ICD10: I10 (primary diagnosis) - fair control - Continue current medication(s) - Recommended regular aerobic exercise. - Recommend home blood pressure monitoring, to bring results in on next visit - Recheck in 1 month, sooner should new symptoms or problems arise. - Goal of BP <130/80 2. Anxiety and depression - ICD9: 300.00, 311, ICD10: F41.9, F32.9 - Improved, doing well, to continue with current regimen. - ESCITALOPRAM 10 MG TABLET Ronel Sheikh, MSN CLOTH SHEARING SUPERVISOR.SOLE ASSESSOR CNOV Observed: 10/24/2017 Status: COMPLETED Source: [place] 3:40 PM [facility] REPOSITORY Office Visit (FAMPWS) SHARON LOZADA ([id number]) 1990 F Date Time Provider Department 10/24/17 3:40 PM RONEL SHEIKH (MANAGER PERSONNEL SELECTION) FAMPWS During your visit today, we recorded the following information about you: Temperature Pulse Respiration Blood pressure 98.5 degrees 76/minute 16/minute 138/88 Weight Last Period 85.7 kg 10/15/17 Ronel Sheikh, MSN CLOTH SHEARING SUPERVISOR.SOLE ASSESSOR 10/24/2017 4:30 PM Signed Patient presents with: Recheck: blood pressure and medication HPI/CC: Sharon Mic Lozada is an 27 year old female who presents for followup of depression treatment. And recheck BP Since last visit patient fatigue. Symptoms have occurred anxious about 1 to 2 times a day. Depressed feeling once a week. Support system: patient states that her boyfriend is her number one support system. Patient also relies on her family as her support system. Patient also uses her friends as a support system. Positive health behaviors: Patient is unable to think of any positive health behavior changes. Patient denies: chest pain, SOB, dizziness, change is bowel patterns. PHQ9 and SUSAN-7: Feeling nervous, anxious, or on edge 0 Not at all sure Not being able to stop or control worrying 0 Not at all sure Worrying too much about different things 1 Several days Trouble relaxing 1 Several days Being so restless that it's hard to sit still 0 Not at all sure Being easily annoyed or irritable 0 Not at all sure Feeling afraid as if something awful might happen 0 Not at all sure SUSAN-7 Anxiety Score 2 If you checked off any problems, how difficult have these problems made it for you to do your work, take care of things at home, or get along with other people? Somewhat difficult HTN: Last 3 Encounter BP Readings: On Lisinopril and HCTZ, denies side effects. Date: BP: 10/24/2017 138/88 10/06/2017 150/90 10/02/2017 140/90 ROS as above, otherwise non-contributory. Reviewed PMHx, PSHx, social Hx, medications and allergies. PHYSICAL EXAMINATION: BP 138/88 Pulse 76 Temp 36.9 ?C (98.5 ?F) (Tympanic) Resp 16 Wt 85.7 kg (189 lb) LMP 10/15/2017 (Exact Date) BMI 31.45 kg/m? Appearance: well dressed well groomed, cooperative and pleasant Behavior: good eye contact and relaxed Speech: fluent and coherent Mood: happy and modulated Affect: appropriate Perceptions: none Thought process: goal directed Thought Content: normal Intelligence level: normal Insight: fair Judgment: good Lungs: Lungs clear to auscultation. No wheezing, rhonchi, rales Heart: RRR without murmur, gallop, or rubs. No ectopy ASSESSMENT/PLAN: 1. Essential hypertension - ICD9: 401.9, ICD10: I10 (primary diagnosis) - fair control - Continue current medication(s) - Recommended regular aerobic exercise. - Recommend home blood pressure monitoring, to bring results in on next visit - Recheck in 1 month, sooner should new symptoms or problems arise. - Goal of BP <130/80 2. Anxiety and depression - ICD9: 300.00, 311, ICD10: F41.9, F32.9 - Improved, doing well, to continue with current regimen. - ESCITALOPRAM 10 MG TABLET Ronel Sheikh, MSN CLOTH SHEARING SUPERVISOR.SOLE ASSESSOR Referring Provider: RONEL SHEIKH (MANAGER PERSONNEL SELECTION) [[id number]] Allergies As of Date: 10/24/2017 (No Known Allergies) Date Reviewed: 10/24/2017 Reviewed by: Jefferson Duncan LPN - Fully Assessed Reason for Visit: Recheck [92] Cmt: blood pressure and medication Primary Visit Diagnosis:Essential hypertension [I10] Other Visit Diagnosis:Anxiety and depression [F41.9, F32.9] Order(s):escitalopram oxalate (LEXAPRO) 10 mg tabletTake 1 tablet by mouth once daily.Disp: 30 tabletRfl: 11 Prescriptions as of 10/24/2017 Sig: ESCITALOPRAM 10 MG TABLET Take 1 tablet by mouth once d* LISINOPRIL 10 MG TABLET Take 1 tablet by mouth once d* HYDROCHLOROTHIAZIDE 12.5 MG C* Take 1 capsule by mouth once * Problem List As Of Date 10/24/2017 Noted Resolved Depression [F32.9] INVALID FOR*11/21/2014 Suicide attempt (HCC) [T14.91XA] INVALID FOR*11/29/2013 Tobacco abuse [Z72.0] INVALID FOR* More... Depression complicating in first trim*INVALID FOR*11/21/2014 More... Supervision of normal [Z34.90] INVALID FOR*10/17/2014 More... Anxiety and depression [F41.9, F32.9] INVALID FOR* Essential hypertension [I10] INVALID FOR* Prescriptions ordered this encounter Disp Refills Start End ESCITALOPRAM 10 MG TABLET 30 t* 11 10/24/2017 Route: ORAL Sig: Take 1 tablet by mouth once daily. Medications Discontinued During This Encounter escitalopram oxalate (LEXAPRO) 10 mg* 30 t* 0 10/02/2017 10/24/2017 Route: ORAL Sig: Take 1 tablet by mouth once daily. Disc: Reason for discontinue is not on file. Disposition: Return in about 1 month (around 11/23/2017). Follow-up and Disposition History Recorded Questionnaire: SUSAN-7 ANXIETY SCALE Feeling nervous, anxious, or on edge -> 0 Not at all sure Not being able to stop or control worrying -> 0 Not at all sure Worrying too much about different things -> 1 Several days Trouble relaxing -> 1 Several days Being so restless that it's hard to sit still -> 0 Not at all sure Being easily annoyed or irritable -> 0 Not at all sure Feeling afraid as if something awful might happen -> 0 Not at all sure SUSAN-7 Anxiety Score -> 2 If you checked off any problems, how difficult have these problems made it for you to do your work, take care of things at home, or get along with other people? -> Somewhat difficult Encounter Status:Closed by RONEL SHEIKH CNP on 10/24/17 PROGRESS Observed: 10/06/2017 Status: COMPLETED Source: [place] 5:10 PM [facility] RE[facility]ITORY O ID: [id number] Author: Martir Colbert) Service: (none) Author Type: Nurse Practitioner Type: Progress Notes Filed: 10/06/2017 8:50 PM Note Text: SUBJECTIVE: Sahron Lozada is a 27 year old female. Who presents today with cold symptoms. She had a fever of 99 at home with congestion and cough. She has a good appetite. Her daughter is sick with the same thing. Her daughter started day care 1 month ago. Her bp is elevated today but she forgot to take her bp medication No abd pain v cp or sob HPI PAST MEDICAL HISTORY Diagnosis Date - Depression 01/11/2012 - PMH - PAST MEDICAL HISTORY OF 11/01/95 normal color vision - PMH - PAST MEDICAL HISTORY OF left ear high frequency hearing loss - Suicide attempt (HCC) 01/11/2012 - Tobacco abuse 01/11/2012 FAMILY HISTORY Problem Relation Age of Onset - Adopted: Yes - other (adopted [Other]) Unknown Social History Substance Use Topics - Smoking status: Current Some Day Smoker Packs/day: 0.25 Types: Cigarettes - Smokeless tobacco: Never Used Comment: smokes socially on weekends - Alcohol use No ALLERGIES No Known Allergies Current Outpatient Prescriptions: lisinopril (ZESTRIL, PRINIVIL) 10 mg tablet Take 1 tablet by mouth once daily. Disp: 30 tablet Rfl: 1 escitalopram oxalate (LEXAPRO) 10 mg tablet Take 1 tablet by mouth once daily. Disp: 30 tablet Rfl: 0 Hydrochlorothiazide 12.5 mg capsule Take 1 capsule by mouth once daily. Disp: 90 capsule Rfl: 3 No current facility-administered medications for this visit. OBJECTIVE: BP 150/90 Pulse 77 Temp 37.2 ?C (99 ?F) (Left Tympanic) Resp 16 Wt 85.7 kg (189 lb) LMP 09/20/2017 (Approximate) SpO2 98% BMI 31.45 kg/m? ROS all other systems reviewed and are negative Physical Exam Constitutional: Well developed, well nourished, NAD, alert and oriented to person , place and time, in no apparent distress. ENT: Head is atraumatic, airway patent, mucosal membranes moist pink no exudate no REGISTER CLERK TM clear robe Eyes: EOMI, PERRL, no drainage, vision unchanged Neck: supple with no palpable lymph nodes, no midline tenderness Cardiac: Normal rate and rhythm. Heart sounds S1, S2. No murmurs, rubs or gallops. Chest: nontender Respiratory: No retractions or use of accessory muscles. Breath sounds clear and equal bilaterally. : no CVA tenderness MS: no swelling tenderness or deformity in upper or lower extremities, no midline tenderness in thoracic or lumbar spine. Neuro: strength sensation and coordination intact. CN II-XII grossly intact, Skin: warm and dry with out rash, lesion or ecchymosis Psych: alert appropriate, speech clear It was a pleasure to take care of Sharon Whelanz today. She will take motrin and increase her fluids she may also use cough drops Patient will follow up with family physician. They may return to the Urgent Care or go to the ER for worsening symptoms or concerns. Patient verbalized understanding of plan of care and is in agreement. ASSESSMENT/PLAN: 1. Viral illness - ICD9: 079.99, ICD10: B34.9 Martir Miller APRN.LANNY ALDRIDGE Observed: 10/06/2017 Status: COMPLETED Source: [place] 5:00 PM [facility] REPOSITORY Office Visit (WSTR) SHARON LOZADA ([id number]) 1990 F Date Time Provider Department 10/06/17 5:00 PM MARTIR MILLER (LANNY) [facility] During your visit today, we recorded the following information about you: Temperature Pulse Respiration Blood pressure 99 degrees 77/minute 16/minute 150/90 Weight 85.7 kg Martir Miller APRN.CNP 10/06/2017 8:50 PM Signed SUBJECTIVE: Sharon Lozada is a 27 year old female. Who presents today with cold symptoms. She had a fever of 99 at home with congestion and cough. She has a good appetite. Her daughter is sick with the same thing. Her daughter started day care 1 month ago. Her bp is elevated today but she forgot to take her bp medication No abd pain v cp or sob HPI PAST MEDICAL HISTORY Diagnosis Date - Depression 01/11/2012 - PM - PAST MEDICAL HISTORY OF 11/01/95 normal color vision - PM - PAST MEDICAL HISTORY OF left ear high frequency hearing loss - Suicide attempt (HCC) 01/11/2012 - Tobacco abuse 01/11/2012 FAMILY HISTORY Problem Relation Age of Onset - Adopted: Yes - other (adopted [Other]) Unknown Social History Substance Use Topics - Smoking status: Current Some Day Smoker Packs/day: 0.25 Types: Cigarettes - Smokeless tobacco: Never Used Comment: smokes socially on weekends - Alcohol use No ALLERGIES No Known Allergies Current Outpatient Prescriptions: lisinopril (ZESTRIL, PRINIVIL) 10 mg tablet Take 1 tablet by mouth once daily. Disp: 30 tablet Rfl: 1 escitalopram oxalate (LEXAPRO) 10 mg tablet Take 1 tablet by mouth once daily. Disp: 30 tablet Rfl: 0 Hydrochlorothiazide 12.5 mg capsule Take 1 capsule by mouth once daily. Disp: 90 capsule Rfl: 3 No current facility-administered medications for this visit. OBJECTIVE: BP 150/90 Pulse 77 Temp 37.2 ?C (99 ?F) (Left Tympanic) Resp 16 Wt 85.7 kg (189 lb) LMP 09/20/2017 (Approximate) SpO2 98% BMI 31.45 kg/m? ROS all other systems reviewed and are negative Physical Exam Constitutional: Well developed, well nourished, NAD, alert and oriented to person , place and time, in no apparent distress. ENT: Head is atraumatic, airway patent, mucosal membranes moist pink no exudate no REGISTER CLERK TM clear robe Eyes: EOMI, PERRL, no drainage, vision unchanged Neck: supple with no palpable lymph nodes, no midline tenderness Cardiac: Normal rate and rhythm. Heart sounds S1, S2. No murmurs, rubs or gallops. Chest: nontender Respiratory: No retractions or use of accessory muscles. Breath sounds clear and equal bilaterally. : no CVA tenderness MS: no swelling tenderness or deformity in upper or lower extremities, no midline tenderness in thoracic or lumbar spine. Neuro: strength sensation and coordination intact. CN II-XII grossly intact, Skin: warm and dry with out rash, lesion or ecchymosis Psych: alert appropriate, speech clear It was a pleasure to take care of Sharon Whelanz today. She will take motrin and increase her fluids she may also use cough drops Patient will follow up with family physician. They may return to the Urgent Care or go to the ER for worsening symptoms or concerns. Patient verbalized understanding of plan of care and is in agreement. ASSESSMENT/PLAN: 1. Viral illness - ICD9: 079.99, ICD10: B34.9 Martir Miller APRN.SOLE ASSESSOR Referring Provider: SELF [200] Allergies As of Date: 10/06/2017 (No Known Allergies) Date Reviewed: 10/06/2017 Reviewed by: Ting Pandey Ma - Fully Assessed Reason for Visit: Fever [47] Cough [28] Primary Visit Diagnosis:Viral illness [B34.9] Prescriptions as of 10/06/2017 Sig: LISINOPRIL 10 MG TABLET Take 1 tablet by mouth once d* ESCITALOPRAM 10 MG TABLET Take 1 tablet by mouth once d* HYDROCHLOROTHIAZIDE 12.5 MG C* Take 1 capsule by mouth once * Problem List As Of Date 10/06/2017 Noted Resolved Depression [F32.9] INVALID FOR*11/21/2014 Suicide attempt (HCC) [T14.91XA] INVALID FOR*11/29/2013 Tobacco abuse [Z72.0] INVALID FOR* More... Depression complicating in first trim*INVALID FOR*11/21/2014 More... Supervision of normal [Z34.90] INVALID FOR*10/17/2014 More... Anxiety and depression [F41.9, F32.9] INVALID FOR* Essential hypertension [I10] INVALID FOR* Encounter Status:Closed by MARTIR MILLER CNP on 10/06/17 PROGRESS Observed: 10/02/2017 Status: COMPLETED Source: [place] 3:45 PM [facility] REPOSITORY O ID: [id number] Author: Ronel Richard (Jennifer) Aguilar Service: (none) Author Type: Nurse Practitioner Type: Progress Notes Filed: 10/02/2017 5:05 PM Note Text: Chief Complaint Patient presents with: Recheck: blood pressure HPI Sharon Lozada is a 27 year old female who presents here today for Above Complaints. HTN: Ms. Lozada indicates that she is feeling well and denies any symptoms referable to elevated blood pressure. Specifically denies headache, chest pain, palpitations, dyspnea and peripheral edema. Patient denies any side effects of her medication(s) and is compliant with their regimen. She does not check BP's generally. Sharon gets minimal exercise. She watches her diet for sodium, low fat and low cholesterol generally not very much. Last 3 Encounter BP Readings: Date: BP: 10/02/2017 142/92 02/27/2017 122/82 07/01/2016 126/78 Mood: notes irritability, denies suicidal or homicidal thoughts. Notes depression and anxiety. Has been off medications for over a year. Last med was Vybrd. Stopped cold turkey when insurance didn't cover. She noted SE with brain zaps after stopping Vybryd suddenly. Denies suicidal or homicidal thoughts. + previous suicide attempt. Past medical history, appointments, medications, allergies reviewed. Previous Medical History PAST MEDICAL HISTORY Diagnosis Date - Depression 01/11/2012 - PMH - PAST MEDICAL HISTORY OF 11/01/95 normal color vision - PMH - PAST MEDICAL HISTORY OF left ear high frequency hearing loss - Suicide attempt (HCC) 01/11/2012 - Tobacco abuse 01/11/2012 Previous Surgical History PAST SURGICAL HISTORY Procedure Laterality Date - DELIVERY ONLY 10/07/14 , low transverse Family History FAMILY HISTORY Problem Relation Age of Onset - Adopted: Yes - other (adopted [Other]) Unknown Patient Allergies ALLERGIES No Known Allergies Current Medications Current Outpatient Prescriptions on File Prior to Visit: Hydrochlorothiazide 12.5 mg capsule Take 1 capsule by mouth once daily. lisinopril (ZESTRIL, PRINIVIL) 5 mg tablet Take 1 tablet by mouth once daily. No current facility-administered medications on file prior to visit. Social History Social History Marital status: Single Spouse name: Years of education: Number of children: 1 Occupational History Occupation Employer Comment [employer] Social History Main Topics Smoking status: Current Some Day Smoker Packs/day: 0.25 Years: 0.00 Types: Cigarettes Smokeless tobacco: Never Used Comment: smokes socially on weekends Alcohol use: No Drug use: No Sexual activity: Yes Partners with: Male control/protection: None Review of Symptoms REVIEW OF SYSTEMS PAIN ASSESSMENT: Negative for pain, history of chronic pain, or current treatment for a chronic pain condition. GENERAL: No weight loss, malaise or fevers HEENT: Negative for frequent or significant headaches, No changes in hearing or vision, no nose bleeds or other nasal problems NECK: Negative for lumps, goiter, pain and significant neck swelling RESPIRATORY: Negative for cough, hemoptysis, wheezing, COPD, dyspnea or shortness of breath CARDIOVASCULAR: Negative for chest pain, leg swelling, hypertension, CHF or palpitations EXAM: BP 140/90 Pulse 80 Temp 36.6 ?C (97.9 ?F) (Tympanic) Resp 18 Wt 84.8 kg (187 lb) LMP 09/20/2017 (Approximate) BMI 31.12 kg/m? General Appearance: Well appearing, alert, in no acute distress, well-hydrated, well nourished.. Neck: Supple, no adenopathy; thyroid symmetric, normal size, no bruits. Lungs: Lungs clear to auscultation. No wheezing, rhonchi, rales. Heart: RRR without murmur, gallop, or rubs. No ectopy. Extremities: No deformities, edema, skin discoloration, clubbing or cyanosis. Good capillary refill. . Health Maintenance List BLOOD PRESSURE CONTROLLED due on 2006 ONE PNEUMOVAX PRIOR TO AGE 65 due on 04/21/2007 PAP EVERY 3 YEARS (21-30 YEAR OLDS) due on 04/25/2017 INFLUENZA(1) due on 10/14/2017 ANNUAL PCP TEAM CHRONIC DISEASE VISIT due on 02/27/2018 DTAP,TDAP,TD(8 - Td) due on 08/01/2024 ASSESSMENT/PLAN: 1. Essential hypertension - ICD9: 401.9, ICD10: I10 (primary diagnosis) - suboptimal control - Increase lisinopril (Zestril/Prinivil), reviewed that lisinopril is contraindicated in and she is to strictly avoid getting . She does not plan another . Recommend f/u with PRODUCTION CHECKER reliable contraception. Meantime condoms and spermicide - Encouraged dietary sodium restriction/DASH diet - Recommended regular aerobic exercise. - Recommend home blood pressure monitoring, to bring results in on next visit - Follow up in 3 weeks, sooner if needed. - Goal of BP <130/80 - LISINOPRIL 10 MG TABLET 2. Anxiety and depression - ICD9: 300.00, 311, ICD10: F41.9, F32.9 Reviewed risks, benefits, potential side effects, and expected goals of therapy. Patient wishes to proceed with medication. -F/U in 3 weeks - ESCITALOPRAM 10 MG TABLET Ronel Sheikh, MSN CLOTH SHEARING SUPERVISOR.SOLE ASSESSOR CNOV Observed: 10/02/2017 Status: COMPLETED Source: [place] 3:20 PM [facility] REPOSITORY Office Visit (FAMPWS) SHARON LOZADA ([id number]) 1990 F Date Time Provider Department 10/02/17 3:20 PM RONEL SHEIKH (MANAGER PERSONNEL SELECTION) FAMPWS During your visit today, we recorded the following information about you: Temperature Pulse Respiration Blood pressure 97.9 degrees 80/minute 18/minute 140/90 Weight Last Period 84.8 kg 09/20/17 Ronel Sheikh, MSN CLOTH SHEARING SUPERVISOR.SOLE ASSESSOR 10/02/2017 5:05 PM Signed Chief Complaint Patient presents with: Recheck: blood pressure HPI Sharon Lozada is a 27 year old female who presents here today for Above Complaints. HTN: Ms. Lozada indicates that she is feeling well and denies any symptoms referable to elevated blood pressure. Specifically denies headache, chest pain, palpitations, dyspnea and peripheral edema. Patient denies any side effects of her medication(s) and is compliant with their regimen. She does not check BP's generally. Sharon gets minimal exercise. She watches her diet for sodium, low fat and low cholesterol generally not very much. Last 3 Encounter BP Readings: Date: BP: 10/02/2017 142/92 02/27/2017 122/82 07/01/2016 126/78 Mood: notes irritability, denies suicidal or homicidal thoughts. Notes depression and anxiety. Has been off medications for over a year. Last med was Vybrd. Stopped cold turkey when insurance didn't cover. She noted SE with brain zaps after stopping Vybryd suddenly. Denies suicidal or homicidal thoughts. + previous suicide attempt. Past medical history, appointments, medications, allergies reviewed. Previous Medical History PAST MEDICAL HISTORY Diagnosis Date - Depression 01/11/2012 - PMH - PAST MEDICAL HISTORY OF 11/01/95 normal color vision - [facility] - PAST MEDICAL HISTORY OF left ear high frequency hearing loss - Suicide attempt (HCC) 01/11/2012 - Tobacco abuse 01/11/2012 Previous Surgical History PAST SURGICAL HISTORY Procedure Laterality Date - DELIVERY ONLY 10/07/14 , low transverse Family History FAMILY HISTORY Problem Relation Age of Onset - Adopted: Yes - other (adopted [Other]) Unknown Patient Allergies ALLERGIES No Known Allergies Current Medications Current Outpatient Prescriptions on File Prior to Visit: Hydrochlorothiazide 12.5 mg capsule Take 1 capsule by mouth once daily. lisinopril (ZESTRIL, PRINIVIL) 5 mg tablet Take 1 tablet by mouth once daily. No current facility-administered medications on file prior to visit. Social History Social History Marital status: Single Spouse name: Years of education: Number of children: 1 Occupational History Occupation Employer Comment [employer] Social History Main Topics Smoking status: Current Some Day Smoker Packs/day: 0.25 Years: 0.00 Types: Cigarettes Smokeless tobacco: Never Used Comment: smokes socially on weekends Alcohol use: No Drug use: No Sexual activity: Yes Partners with: Male control/protection: None Review of Symptoms REVIEW OF SYSTEMS PAIN ASSESSMENT: Negative for pain, history of chronic pain, or current treatment for a chronic pain condition. GENERAL: No weight loss, malaise or fevers HEENT: Negative for frequent or significant headaches, No changes in hearing or vision, no nose bleeds or other nasal problems NECK: Negative for lumps, goiter, pain and significant neck swelling RESPIRATORY: Negative for cough, hemoptysis, wheezing, COPD, dyspnea or shortness of breath CARDIOVASCULAR: Negative for chest pain, leg swelling, hypertension, CHF or palpitations EXAM: BP 140/90 Pulse 80 Temp 36.6 ?C (97.9 ?F) (Tympanic) Resp 18 Wt 84.8 kg (187 lb) LMP 09/20/2017 (Approximate) BMI 31.12 kg/m? General Appearance: Well appearing, alert, in no acute distress, well-hydrated, well nourished.. Neck: Supple, no adenopathy; thyroid symmetric, normal size, no bruits. Lungs: Lungs clear to auscultation. No wheezing, rhonchi, rales. Heart: RRR without murmur, gallop, or rubs. No ectopy. Extremities: No deformities, edema, skin discoloration, clubbing or cyanosis. Good capillary refill. . Health Maintenance List BLOOD PRESSURE CONTROLLED due on 2006 ONE PNEUMOVAX PRIOR TO AGE 65 due on 04/21/2007 PAP EVERY 3 YEARS (21-30 YEAR OLDS) due on 04/25/2017 INFLUENZA(1) due on 10/14/2017 ANNUAL PCP TEAM CHRONIC DISEASE VISIT due on 02/27/2018 DTAP,TDAP,TD(8 - Td) due on 08/01/2024 ASSESSMENT/PLAN: 1. Essential hypertension - ICD9: 401.9, ICD10: I10 (primary diagnosis) - suboptimal control - Increase lisinopril (Zestril/Prinivil), reviewed that lisinopril is contraindicated in and she is to strictly avoid getting . She does not plan another . Recommend f/u with PRODUCTION CHECKER reliable contraception. Meantime condoms and spermicide - Encouraged dietary sodium restriction/DASH diet - Recommended regular aerobic exercise. - Recommend home blood pressure monitoring, to bring results in on next visit - Follow up in 3 weeks, sooner if needed. - Goal of BP <130/80 - LISINOPRIL 10 MG TABLET 2. Anxiety and depression - ICD9: 300.00, 311, ICD10: F41.9, F32.9 Reviewed risks, benefits, potential side effects, and expected goals of therapy. Patient wishes to proceed with medication. -F/U in 3 weeks - ESCITALOPRAM 10 MG TABLET Ronel Sheikh, MSN CLOTH SHEARING SUPERVISOR.SOLE ASSESSOR Referring Provider: MICHELE BROWN III [[id number]] Allergies As of Date: 10/02/2017 (No Known Allergies) Date Reviewed: 10/02/2017 Reviewed by: Jefferson Duncan LPN - Fully Assessed Reason for Visit: Recheck [92] Cmt: blood pressure Primary Visit Diagnosis:Essential hypertension [I10] Other Visit Diagnosis:Anxiety and depression [F41.9, F32.9] Order(s):lisinopril (ZESTRIL, PRINIVIL) 10 mg tabletTake 1 tablet by mouth once daily.Disp: 30 tabletRfl: 1 escitalopram oxalate (LEXAPRO) 10 mg tabletTake 1 tablet by mouth once daily.Disp: 30 tabletRfl: 0 Prescriptions as of 10/02/2017 Sig: HYDROCHLOROTHIAZIDE 12.5 MG C* Take 1 capsule by mouth once * LISINOPRIL 10 MG TABLET Take 1 tablet by mouth once d* ESCITALOPRAM 10 MG TABLET Take 1 tablet by mouth once d* Problem List As Of Date 10/02/2017 Noted Resolved Depression [F32.9] INVALID FOR*11/21/2014 Suicide attempt (HCC) [T14.91XA] INVALID FOR*11/29/2013 Tobacco abuse [Z72.0] INVALID FOR* More... Depression complicating in first trim*INVALID FOR*11/21/2014 More... Supervision of normal [Z34.90] INVALID FOR*10/17/2014 More... Anxiety and depression [F41.9, F32.9] INVALID FOR* Essential hypertension [I10] INVALID FOR* Prescriptions ordered this encounter Disp Refills Start End LISINOPRIL 10 MG TABLET 30 t* 1 10/02/2017 Route: ORAL Sig: Take 1 tablet by mouth once daily. ESCITALOPRAM 10 MG TABLET 30 t* 0 10/02/2017 Route: ORAL Sig: Take 1 tablet by mouth once daily. Medications Discontinued During This Encounter lisinopril (ZESTRIL, PRINIVIL) 5 mg * 90 t* 3 02/27/2017 10/02/2017 Route: ORAL Sig: Take 1 tablet by mouth once daily. Disc: Changing Therapy/Dosage Form Disposition: Return in about 3 weeks (around 10/23/2017). Follow-up and Disposition History Recorded Encounter Status:Closed by RONEL SHEIKH CNP on 10/02/17 CHRIS Observed: 08/15/2017 Status: COMPLETED Source: [place] 12:00 AM [facility] REPOSITORY Patient Outreach (INT[facility]) SHARON LOZADA ([id number]) 1990 F Date Time Provider Department 08/15/17 [facility] During your visit today, we recorded the following information about you: Allergies As of Date: 08/15/2017 (No Known Allergies) Date Reviewed: 02/27/2017 Reviewed by: Jefferson Duncan LPN - Fully Assessed Visit Diagnosis:Medication management [Z79.899] Order(s):BASIC METABOLIC PNL [SQBMP] Order #: [id number] FUTURE Prescriptions as of 08/15/2017 Sig: X HYDROCHLOROTHIAZIDE 12.5 MG C* Take 1 capsule by mouth once * X LISINOPRIL 5 MG TABLET Take 1 tablet by mouth once d* Problem List As Of Date 08/15/2017 Noted Resolved Depression [F32.9] INVALID FOR*11/21/2014 Suicide attempt (HCC) [T14.91XA] INVALID FOR*11/29/2013 Tobacco abuse [Z72.0] INVALID FOR* More... Depression complicating in first trim*INVALID FOR*11/21/2014 More... Supervision of normal [Z34.90] INVALID FOR*10/17/2014 More... Anxiety and depression [F41.9, F32.9] INVALID FOR* Essential hypertension [I10] INVALID FOR* Encounter Status:Closed by FREDI DAVIS on 11/24/17 ALLERGIES ALLERGIES DATE TYPE / CODE NAME / CODE REACTION SEVERITY SOURCE 03/03/2018 Drug No Known Unknown [facility] Allergy/416 Allergies/[id number] Hospital [id number](SNOM 0388(RXNORM) Repository ED CT) Drug NO KNOWN [facility] Class/27177 ALLERGIES Other [place] 1003(SNOMED Repository CT) NG/[id number] NO KNOWN [place] [address]([facility]) Repository ENCOUNTERS ENCOUNTERS ADMIT/DISCHARGE ACCOUNT NUMBER ADMITTING ENCOUNTER LOCATION SOURCE CLASS 03/10/2018/03/10/19 [id number] Emergency [address] Other [place] Repository 03/10/2018/03/10/19 [id number] Emergency [facility] [address] [place]ICAL [place]: EMBed: 40 03/03/2018/03/03/19 [id number] Emergency [address] ding:ED Repository 11/23/2017/11/25/19 [id number] Ambulatory [address] Main [place] Repository 10/24/2017/10/26/19 [id number] Ambulatory [address] Main [place] Repository 10/06/2017/10/10/19 [id number] Ambulatory [address] Main [place] Repository 10/02/2017/10/04/19 [id number] Ambulatory [address] Main [place] Repository PAYERS PAYERS ENCOUNTER GUARANTOR PAYER SUBSCRIBER SOURCE 03/10/2018 SHARON A Primary SHARON A [facility] FRONTZDOB: Insurance:BLUE ACCESS FRONTZDOB: Health System PPOPolicy Number: [id number] [facility] [id number] [place], [place] Date: [address]Bns: () 03/03/2018 SHARON A Primary SHARON A [place] [id number] Insurance:ANTHEMPolic FRONTZDOB: [facility] y Number: [id number] [place], [place] [id number] Repository [address]Hzj: 330) Date:[id number] [phone] () [id number], [place] [address]ZL: 03/03/2018 Secondary NOT GIVENUNK [place] Insurance:SELF PAY [facility] Number: Effective Repository Date:2018-03-03
== END 2018-03-03 04:47 | disposition home or self-care (01) ==
PROVIDERS: Emergency Provider Emergency Medicine; Family Provider Family Medicine; PCP Family Medicine
DX: R07.9 Chest pain, unspecified (principal); I10 Essential (primary) hypertension; F32.9 Major depressive disorder, single episode, unspecified; F17.200 Nicotine dependence, unspecified, uncomplicated; Z79.899 Other long term (current) drug therapy
CPT/HCPCS: 71275; 80048; 84484; 85025; 93005; 99284; Q9967; A4216

== ENCOUNTER 2019-07-13 03:55 | Emergency (ER) | payer MEDICAID, SELFPAY ==
[2019-07-13 03:55] VITALS: BP 166/102; PULSE 102; RESP 18; TEMP 37.1; O2SAT 100; BMI 34.2
--- NOTE | 2019-07-13 04:13 | ED.DCSUM_ITS ---
- ER Visit Summary Date of Service: 07/13/19 Chief Complaint: [Right jaw pain] History of Present Illness: The patient is a 29 F [presents to the emergency department complaint of pain in her right jaw. Patient states that she woke up just prior to arrival in the emergency department because of pain in both ears. She subsequently states that the pain in her ears went away but now has pain localized to the right side of her jaw. She denies any trauma. No history of TMJ. Denies any dental pain. She is had no fever or recent illness. She is never had symptoms like this before. Patient states the pain was excruciating.] Physical Examination: [HEENT-PERRLA, EOMI. Cranial nerves II through XII grossly intact. TMs clear. Mucous membranes moist. No adenopathy. No facial erythema or swelling noted. She has no tenderness on tooth percussion. She does have some mild tenderness over the angle of the mandible and over the parotid gland. I do not appreciate any swelling of the parotid gland. Cardiovascular-regular rate and rhythm without murmur or ectopy Lungs-clear to auscultation, chest wall stable without crepitus or subcu emphysema Abdomen-normoactive bowel sounds, soft, nontender, no rebound or rigidity, no peritoneal signs. Extremities-intact ?4, normal range of motion, normal pulses, atraumatic] Test Results: [None indicated] Emergency Department Course and Treatment: [She was started on clindamycin and given a prescription for [place]] Treatment Plan: [She will be treated clindamycin and [place]. Patient advised to follow-up with her dentist within next 3 to 5 days.] Disposition: [Discharged home in stable condition.] Impression: [Facial pain-etiology uncertain] This note was generated with [employer] software. It may contain incorrect words, spelling, and punctuation that were not noted in review of the chart prior to signing ED Disposition - Plan for ED Patient: Referrals: Michele Brown III, MD [Primary Care Provider] -
--- NOTE | 2019-07-13 04:15 | DCINST.ED_ITS ---
ED Disposition - Plan for ED Patient: Instructions: ED Tooth Pain Prescriptions: Clindamycin HCl [Cleocin] 300 mg PO Q6H #40 cap Prescription Printed Hydrocodone Bitart/Apap 5-325 [[place] 5MG-325MG] 1 tab PO Q4H PRN PRN 2 Days #10 tab PRN Reason: Pain Prescription Printed Referrals: Michele Brown III, MD [Primary Care Provider] - Additional Instructions: Reason for your Jaw pain is unclear See a dentist in 3-5 days
[2019-07-13] MEDS: Clindamycin HCl 150 MG Capsule 300 MG PO (04:22)
[2019-07-13] MEDS: HYDROcodone Bitartrate/Apap 5/325 Tablet PO (04:22)
[2019-07-13 04:31] VITALS: RESP 16
== END 2019-07-13 04:32 | disposition home or self-care (01) ==
LOC: ED 04:31
PROVIDERS: Emergency Provider Emergency Medicine; PCP Family Medicine
DX: R51 Headache (principal); I10 Essential (primary) hypertension; Z72.0 Tobacco use; Z79.899 Other long term (current) drug therapy
CPT/HCPCS: 99283